=== PATIENT | male | born 2000 | race American Indian/Alaskan Native ===

== ENCOUNTER 2021-08-01 13:41 | Emergency (ER) | payer SELFPAY ==
[2021-08-01] MEDS ORDERED: SODIUM CHLORIDE 0.9% IRR 500 ML BOTTLE IR ONE (13:55)
[2021-08-01] MEDS ORDERED: ACETAMINOPHEN 325 MG TAB PO ONE (13:55)
[2021-08-01] MEDS ORDERED: ceFAZolin 1 GM VIAL IM ONE (13:56)
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
[2021-08-01] MEDS ORDERED: SODIUM CHLORIDE IRRI 500 ML 500 ML IR ONE (13:57)
[2021-08-01 13:59] VITALS: BP 127/74
== END 2021-08-01 14:45 | disposition home or self-care (01) ==
LOC: ED 13:41
DX: T14.8XXA Other injury of unspecified body region, initial encounter (principal); X58.XXXA Exposure to other specified factors, initial encounter; Y93.89 Activity, other specified; Y92.89 Other specified places as the place of occurrence of the external cause; Y99.8 Other external cause status
CPT/HCPCS: 96372; 99282; J0690